=== PATIENT | female | born 1945 | race Hispanic/Latino ===

== ENCOUNTER → 2019-01-07 | Outpatient (CLI) | payer MEDICARE, OTHER ==
[~2019-01-07] MED LIST: ASPI-1012 PO; CARV3.1262 PO; FURO20TA6 PO; LEVO750T21 PO; TYL3 PO
== END | disposition home or self-care (01) ==
LOC: SHCH 13:43
PROVIDERS: ATTEND Internal Medicine Cardiovascular Disease
DX: I11.9 Hypertensive heart disease without heart failure (principal); I08.0 Rheumatic disorders of both mitral and aortic valves
CPT/HCPCS: 93306

== ENCOUNTER → 2020-02-08 | Outpatient (CLI) | payer OTHER | END | disposition home or self-care (01) | LOC: RAH 12:50 | PROVIDERS: ATTEND Family Medicine | DX: M47.816 Spondylosis without myelopathy or radiculopathy, lumbar region (principal); M54.41 Lumbago with sciatica, right side | CPT/HCPCS: 72131 ==

== ENCOUNTER 2020-07-03 05:30 | Observation (INO) | payer OTHER ==
[2020-07-02 13:16] LABS: BASOPHILS % (AUTO) 0.6 % (0.0-5.0); EOSINOPHILS % (AUTO) 1.6 % (0.0-8.0); HEMATOCRIT 39.9 % (36-48); LYMPHOCYTES % (AUTO) 16.1 % (21.0-51.0); MEAN CORPUSCULAR HEMOGLOBIN 28.4 pg (27.0-33.0); MEAN CORPUSCULAR HGB CONC 32.1 g/dL (32.0-36.0); MEAN CORPUSCULAR VOLUME 88.7 fL (79-99); MONOCYTES % (AUTO) 6.3 % (3.0-13.0); NEUTROPHILS % (AUTO) 74.7 % (40.0-77.0); PLATELET COUNT (AUTO) 219 K/uL (130-400); RED CELL DISTRIBUTION WIDTH 13.9 % (11.0-15.5); WHITE BLOOD COUNT (AUTO) 12.6 K/uL (4.8-10.8)
[2020-07-02 15:04] VITALS: BP 128/60
[2020-07-03] VITALS (30 sets, daily range): BP systolic 74–147; BP diastolic 42–87
[~2020-07-03] VITALS: Ht 175.3 cm; Wt 105.3 kg
[~2020-07-03 05:30] MED LIST changes: +APIX5TAB PO; -ASPI-1012 PO; +CLOTRIMAZOLE TP; +DIPH25TA20 PO; +FOLI1TAB85 PO; +FURO20TA4 PO; -FURO20TA6 PO; -LEVO750T21 PO; +LIDOP TP; +LOSA50TA64 PO
[2020-07-03] MEDS ORDERED: LACTATED RINGERS 1000ML 1,000 ML IV ONE (06:10)
[2020-07-03] MEDS ORDERED: LIDOCAINE PF 100MG/5ML (2%) SYRINGE 5ML ONE (06:22)
[2020-07-03] MEDS ORDERED: MIDAZOLAM HCL 1 MG/ML 2ML VIAL ONE (06:22)
[2020-07-03] MEDS ORDERED: ROCURONIUM 10MG/1ML SYR 10 MG/ML ML ONE (06:22)
[2020-07-03] MEDS ORDERED: SUCCINYLCHOLINE CHLORIDE 20 MG/ML 10 ML VIAL ONE (06:22)
[2020-07-03] MEDS ORDERED: PROPOFOL 10 MG/ML 20ML VIAL IV ONE (06:22)
[2020-07-03] MEDS ORDERED: FENTANYL CITRATE PF 50 MCG/1 ML 2ML VIAL ONE (06:23)
[2020-07-03] MEDS ORDERED: CLINDAMYCIN IVPB 600MG/50ML 50 ML IV PRN ×2 (07:57→08:00)
[2020-07-03] MEDS ORDERED: LEVOFLOXACIN 500 MG/D5W 100 ML 100 ML IV PRN (08:00)
[2020-07-03] MEDS ORDERED: NEOSTIGMINE 5MG/5ML SYR IV ONE (08:44)
[2020-07-03] MEDS ORDERED: GLYCOPYRROLATE 1 MG/5 ML SYRINGE ONE (08:44)
[2020-07-03] MEDS ORDERED: MEPERIDINE-PF 25 MG/ML SYG ONE (09:20)
[2020-07-03] MEDS ORDERED: ONDANSETRON 4MG INJ ONE (09:26)
[2020-07-03] MEDS ORDERED: METOCLOPRAMIDE 10 MG/2 ML VIAL ONE (09:33)
[2020-07-03] MEDS ORDERED: ATROPINE 1MG SYG IVP ONE (09:35)
[2020-07-03] MEDS ORDERED: ONDANSETRON 4MG INJ IVP PRN (11:30)
[2020-07-03] MEDS ORDERED: PROMETHAZINE HCL 25 MG/ML 1ML AMPULE IM PRN ×2 (11:30)
[2020-07-03] MEDS ORDERED: BISACODYL 10 MG SUPP.RECT RC PRN (11:30)
[2020-07-03] MEDS ORDERED: MEPERIDINE-PF 75 MG/ML SYG IM PRN (11:30)
[2020-07-03] MEDS ORDERED: SIMETHICONE 80 MG TAB.CHEW PO PRN (11:30)
[2020-07-03] MEDS: DEXTROSE 5 %-0.45 % NACL 1,000 ML IV PRN ×2 (12:39→20:53)
[2020-07-03] MEDS: ACETAMINOPHEN WITH CODEINE 1 TAB TAB PO PRN (12:47)
[2020-07-03] MEDS: IBUPROFEN 600 MG TABLET PO PRN (17:10)
[2020-07-03] MEDS: DOCUSATE SODIUM 100 MG CAP PO PRN (20:35)
[2020-07-04 03:45] VITALS: BP 109/66
[2020-07-04] MEDS: DEXTROSE 5 %-0.45 % NACL 1,000 ML IV PRN (05:02)
[2020-07-04 05:07] LABS: HEMATOCRIT 32.7 % (36-48); MEAN CORPUSCULAR HEMOGLOBIN 28.7 pg (27.0-33.0); MEAN CORPUSCULAR HGB CONC 32.4 g/dL (32.0-36.0); MEAN CORPUSCULAR VOLUME 88.6 fL (79-99); RED BLOOD CELL COUNT(AUTO) 3.69 MIL/uL (4.00-5.50); WHITE BLOOD COUNT (AUTO) 11.3 K/uL (4.8-10.8)
[2020-07-04] MEDS: IBUPROFEN 600 MG TABLET PO PRN (05:07)
[2020-07-04 07:18] VITALS: BP 135/66
[2020-07-04] MEDS ORDERED: CLOTRIMAZOLE 30 GM CREAM.GM. TP PRN (08:30)
[2020-07-04] MEDS ORDERED: SIMETHICONE 80 MG TAB.CHEW PO PRN (09:00)
[2020-07-04] MEDS: CARVEDILOL 3.125 MG TABLET PO SCH ×2 (09:16→21:30)
[2020-07-04] MEDS: Vitamin B Complex/Vit C/Folic Acid PO SCH (09:16)
[2020-07-04] MEDS: FUROSEMIDE 20 MG TABLET PO SCH (09:17)
[2020-07-04] MEDS: LOSARTAN 50 MG TABLET PO SCH (09:17)
[2020-07-04] MEDS: FERROUS SULFATE 325 MG TABLET.DR PO SCH (09:18)
[2020-07-04] MEDS: DOCUSATE SODIUM 100 MG CAP PO PRN ×2 (09:18→21:29)
[2020-07-04] MEDS: ACETAMINOPHEN WITH CODEINE 1 TAB TAB PO PRN ×2 (09:27→16:10)
[2020-07-04 10:59] VITALS: BP 129/77
[2020-07-04 16:13] VITALS: BP 150/90
[2020-07-04] MEDS: SIMETHICONE 80 MG TAB.CHEW PO PRN ×2 (18:54→23:41)
[2020-07-04 19:21] VITALS: BP 116/57
[2020-07-04] MEDS: IBUPROFEN 800 MG TAB PO PRN (21:36)
[2020-07-04 23:13] VITALS: BP 112/58
[2020-07-05 03:16] VITALS: BP 130/65
[2020-07-05 07:23] VITALS: BP 102/54
[2020-07-05] MEDS: LOSARTAN 50 MG TABLET PO SCH (08:46)
[2020-07-05] MEDS: FUROSEMIDE 20 MG TABLET PO SCH (08:48)
[2020-07-05] MEDS: FERROUS SULFATE 325 MG TABLET.DR PO SCH (08:50)
[2020-07-05] MEDS: SIMETHICONE 80 MG TAB.CHEW PO PRN ×2 (08:50→14:01)
[2020-07-05] MEDS: ACETAMINOPHEN WITH CODEINE 1 TAB TAB PO PRN (08:51)
[2020-07-05] MEDS: DOCUSATE SODIUM 100 MG CAP PO PRN (08:52)
[2020-07-05] MEDS: Vitamin B Complex/Vit C/Folic Acid PO SCH (08:53)
[2020-07-05] MEDS: CARVEDILOL 3.125 MG TABLET PO SCH (09:00)
[2020-07-05 11:05] VITALS: BP 105/59
[2020-07-05] MEDS: IBUPROFEN 800 MG TAB PO PRN (14:00)
== END 2020-07-05 14:30 | disposition home or self-care (01) ==
LOC: DAH 05:30 → DAHIP 05:31 → UNDOADMOB 05:31 → DAHIP 10:33 → WSH 10:33 → UNDODISOB 07-05 14:30
PROVIDERS: ADMIT Obstetrics & Gynecology; ATTEND Obstetrics & Gynecology
DX: N81.3 Complete uterovaginal prolapse (principal); Z20.828 Contact with and (suspected) exposure to other viral communicable diseases; N39.3 Stress incontinence (female) (male); K46.9 Unspecified abdominal hernia without obstruction or gangrene; I11.0 Hypertensive heart disease with heart failure; I50.9 Heart failure, unspecified; I48.91 Unspecified atrial fibrillation; M19.90 Unspecified osteoarthritis, unspecified site; Z86.718 Personal history of other venous thrombosis and embolism; Z96.651 Presence of right artificial knee joint; Z79.899 Other long term (current) drug therapy
CPT/HCPCS: 36415 ×2; 57240; 57288; 58263; 85025; 85027; 86850; 86900; 86901; 96361 ×2; 96374; 96375; A4215; A4221; A4222; A4223 ×2; A4344; A4351; A4606; A4663; A4930; A6260; C1771; C9803; G0378 ×54; J0330; J0461; J2001; J2250; J2405 ×2; J2704; J2710; J2765; J3010; J3490; J7030; J7120 ×2; U0003; J2175

== ENCOUNTER → 2020-12-21 | Outpatient (CLI) | payer MEDICARE | END | disposition home or self-care (01) | LOC: SHCH 13:53 | PROVIDERS: ATTEND Internal Medicine Cardiovascular Disease | DX: I48.0 Paroxysmal atrial fibrillation (principal) | CPT/HCPCS: 93306; 93356 ==

== ENCOUNTER → 2023-03-19 | Outpatient (CLI) | payer MEDICARE | END | disposition home or self-care (01) | LOC: SHCH 13:24 | PROVIDERS: ATTEND Internal Medicine Cardiovascular Disease | DX: I87.2 Venous insufficiency (chronic) (peripheral) (principal); I73.9 Peripheral vascular disease, unspecified | CPT/HCPCS: 93925; 93970 ==

== ENCOUNTER → 2024-09-05 | Outpatient (CLI) | payer MEDICARE ==
--- NOTE | 2024-09-05 15:12 | HMCIMG ---
CT LUMBAR SPINE W/O CONTRAST REASON: Radiculopathy LUMBAR COMPARISON: None TECHNIQUE: Routine lumbar imaging protocol was performed. Axial images are obtained from mid body T11 through the sacrum. Sagittal and coronal reconstruction images were performed. FINDINGS: There is severe interspace narrowing at L4-5 and at L1-2 with moderate narrowing at other interspaces. There is a very large central Schmorl's node at the L2-3-4 level and a mild Schmorl's node at L4-5. There are anterior osteophytes at multiple levels. Vertebral body alignment is normal. There are no compression fractures. Axial images show moderate spinal stenosis at L5-S1 most pronounced in the lateral recesses. There is severe spinal stenosis at the L4-5 level, AP diameter between 5 and 6 mm. There is mild stenosis at L3-4. There are no discrete focal disc herniations. Stranding soft tissues appear unremarkable. IMPRESSION: 1. Severe lumbar degenerative changes. 2. Severe spinal stenosis at L4-5 on a degenerative basis, there is mild stenosis at L3-4.
== END | disposition home or self-care (01) ==
LOC: RAH 13:41
PROVIDERS: ATTEND Family Medicine
DX: M47.26 Other spondylosis with radiculopathy, lumbar region (principal); M48.061 Spinal stenosis, lumbar region without neurogenic claudication
CPT/HCPCS: 72131

== ENCOUNTER → 2024-12-26 | Outpatient (CLI) | payer MEDICARE ==
--- NOTE | 2024-12-26 13:37 | HMCIMG ---
Exam Type: MR SPINAL CANAL, LUMBAR WO CON Clinical Information: Pain runs down RLE Comparison: None Findings: Straightening consistent with spasm. No acute fractures or dislocations. Spondylitic changes. Disc protrusions at all levels as noted below: L1-2 through L5-S1: Central zone disc protrusion, causing neural foraminal narrowing bilaterally as well as bilateral nerve root impingement. Also, protrusion causes spinal canal stenosis. Degenerative endplate changes seen at all levels, worse at the L2-3 level consistent with Modic type III changes. Small node upper endplate of L3 as well. IMPRESSION: Extensive degenerative changes.
== END | disposition home or self-care (01) ==
LOC: RAH 12:44
PROVIDERS: ATTEND Physical Medicine & Rehabilitation
DX: M47.26 Other spondylosis with radiculopathy, lumbar region (principal); M51.16 Intervertebral disc disorders with radiculopathy, lumbar region; M51.379 Other intervertebral disc degeneration, lumbosacral region without mention of lumbar back pain or lower extremity pain; M48.07 Spinal stenosis, lumbosacral region; M21.371 Foot drop, right foot; M53.3 Sacrococcygeal disorders, not elsewhere classified; M51.27 Other intervertebral disc displacement, lumbosacral region; R26.89 Other abnormalities of gait and mobility; Z91.81 History of falling
CPT/HCPCS: 72148